=== PATIENT | female | born 1945 | race Caucasian/White ===

== ENCOUNTER → 2017-05-10 | Outpatient (REF) | payer BC, MEDICARE | LOC: M LAB REF 17:31 | PROVIDERS: ATTEND Nurse Practitioner Adult Health | DX: R35.0 Frequency of micturition (principal); R32 Unspecified urinary incontinence ==

== ENCOUNTER 2018-11-19 07:12 | Day surgery (SDC) | payer MEDICARE ==
[~2018-11-19] VITALS: Ht 157.5 cm; Wt 69.9 kg
[~2018-11-19 07:12] MED LIST: ASPI81TA85 PO; ESOM40CA35 PO; HYDR25TAB PO; IRBE300T10 PO; LIDOCAINE 2% INJ 100 MG/5 ML SDV (FOR ANES.) As Ordered ONE; METO1TAB32 PO; PROPOFOL 200 MG/20 ML VIAL As Ordered ONE; ROSU5TAB4 PO; VITA2000 PO; WARF-18 PO
[2018-11-19] MEDS ORDERED: NS 1,000 ML IV ONE (07:45)
--- NOTE | 2018-11-19 09:11 | ROOR ---
Patient Name: Rianna Alejandra Procedure Date: 11/19/2018 8:46 AM Date of : 1945 Age: 73 Room: [facility] Gender: Female Note Status: Finalized Procedure: Upper Endoscopy + Biopsies Indications: Heartburn, Heme positive stool Providers: Yimi Salamanca MD Referring MD: Key WHITE MD Requesting Provider: Medicines: Monitored Anesthesia Care Complications: No immediate complications. Procedure: Pre-Anesthesia Assessment: - The heart rate, respiratory rate, oxygen saturations, blood pressure, adequacy of pulmonary ventilation, and response to care were monitored throughout the procedure. The Endoscope was introduced through the mouth, and advanced to the second part of duodenum. The upper GI endoscopy was accomplished without difficulty. The patient tolerated the procedure well. Findings: The Z-line was variable and was found 35 cm from the incisors. Multiple biopsies were obtained with cold forceps for evaluation to rule out Green's Esophagus randomly at the gastroesophageal junction. A medium-sized hiatal hernia was present. No other significant abnormalities were identified in a careful examination of the stomach. The exam of the duodenum was otherwise normal. Biopsies for histology were taken with a cold forceps in the first portion of the duodenum for evaluation of celiac disease. The exam was otherwise without abnormality. Impression: - Z-line variable, 35 cm from the incisors. - Medium-sized hiatal hernia. - The examination was otherwise normal. - Multiple biopsies were obtained at the gastroesophageal junction. - Biopsies were taken with a cold forceps for evaluation of celiac disease. - The examination was otherwise normal. Recommendation: - Patient has a contact number available for emergencies. The signs and symptoms of potential delayed complications were discussed with the patient. Return to normal activities tomorrow. Written discharge instructions were provided to the patient. - High fiber diet. - Discharge patient to home. - Follow an antireflux regimen. - Continue present medications. - Await pathology results. - Telephone GI clinic for pathology results. - Return to referring physician. - The findings and recommendations were discussed with the patient's family. Yimi Salamanca MD Yimi Salamanca MD 11/19/2018 9:10:47 AM This report has been signed electronically. Number of Addenda: 0 Note Initiated On: 11/19/2018 8:46 AM Estimated Blood Loss: Estimated blood loss: none.
--- NOTE | 2018-11-19 09:32 | ROOR ---
Patient Name: Rianna Alejandra Procedure Date: 11/19/2018 8:47 AM Date of : 1945 Age: 73 Room: [facility] Gender: Female Note Status: Finalized Procedure: Total Colonoscopy to Cecum Indications: Heme positive stool Providers: Yimi Salamanca MD Referring MD: Key WHITE MD Requesting Provider: Medicines: Monitored Anesthesia Care Complications: No immediate complications. Procedure: Pre-Anesthesia Assessment: - The heart rate, respiratory rate, oxygen saturations, blood pressure, adequacy of pulmonary ventilation, and response to care were monitored throughout the procedure. The Colonoscope was introduced through the anus and advanced to the cecum, identified by appendiceal orifice and ileocecal valve. The colonoscopy was performed without difficulty. The patient tolerated the procedure well. The quality of the bowel preparation was excellent. Findings: The perianal and digital rectal examinations were normal. Non-bleeding internal hemorrhoids were found during retroflexion. The hemorrhoids were small and Grade I (internal hemorrhoids that do not prolapse). Scattered small-mouthed diverticula were found in the recto-sigmoid colon, sigmoid colon and descending colon. The exam was otherwise without abnormality on direct and retroflexion views. There was a small lipoma, in the proximal ascending colon. Impression: - Non-bleeding internal hemorrhoids. - Diverticulosis in the recto-sigmoid colon, in the sigmoid colon and in the descending colon. - The examination was otherwise normal on direct and retroflexion views. - Small lipoma in the proximal ascending colon. - No specimens collected. - The exam was otherwise normal to the cecum. Recommendation: - Patient has a contact number available for emergencies. The signs and symptoms of potential delayed complications were discussed with the patient. Return to normal activities tomorrow. Written discharge instructions were provided to the patient. - High fiber diet. - Discharge patient to home. - Continue present medications. - Repeat colonoscopy for symptoms only. - Return to referring physician. - The findings and recommendations were discussed with the patient's family. Yimi Salamanca MD Yimi Salamanca MD 11/19/2018 9:32:26 AM This report has been signed electronically. Number of Addenda: 0 Note Initiated On: 11/19/2018 8:47 AM Estimated Blood Loss: Estimated blood loss: none.
[2018-11-19 10:06] VITALS: BP 118/73
== END 2018-11-19 10:09 | disposition home or self-care (01) ==
LOC: M OPP 07:12
PROVIDERS: ATTEND Internal Medicine Gastroenterology
DX: K64.0 First degree hemorrhoids (principal); D17.5 Benign lipomatous neoplasm of intra-abdominal organs; K57.30 Diverticulosis of large intestine without perforation or abscess without bleeding; R19.5 Other fecal abnormalities; K22.8 Other specified diseases of esophagus; K44.9 Diaphragmatic hernia without obstruction or gangrene; R12 Heartburn; Z79.82 Long term (current) use of aspirin; Z79.899 Other long term (current) drug therapy; Z88.1 Allergy status to other antibiotic agents

== ENCOUNTER → 2021-08-25 | Outpatient (REF) | payer MEDICARE ==
[~2021-08-25] MED LIST changes: -ASPI81TA85 PO; +ASPI81TA86 PO; +HYDR-3490 PO; -HYDR25TAB PO; -IRBE300T10 PO; +IRBE300T7 PO; -LIDOCAINE 2% INJ 100 MG/5 ML SDV (FOR ANES.) As Ordered ONE; -PROPOFOL 200 MG/20 ML VIAL As Ordered ONE; -ROSU5TAB4 PO; +ROSU5TAB5 PO
== END ==
LOC: M LAB REF 16:33
PROVIDERS: ATTEND Nurse Practitioner Adult Health
DX: R31.21 Asymptomatic microscopic hematuria (principal)

== ENCOUNTER → 2021-08-27 | Outpatient (CLI) | payer MEDICARE | LOC: M WHC 14:27 | PROVIDERS: ATTEND Nurse Practitioner Adult Health | DX: Z12.31 Encounter for screening mammogram for malignant neoplasm of breast (principal); Z53.9 Procedure and treatment not carried out, unspecified reason ==

== ENCOUNTER → 2021-08-27 | Outpatient (CLI) | payer MEDICARE ==
--- NOTE | 2021-08-27 15:00 | REP ---
INDICATION: UNSPECIFIED ABDOMINAL PAIN. COMPARISON: 10/16/2014 FINDINGS: The superior mediastinal structures are midline. The cardiac silhouette is unremarkable in size, shape, and position. The diaphragmatic surfaces of the lungs are regular, and the costophrenic angles are clear. The pulmonary kerns are clear. The imaged osseous structures are unchanged. There is a hiatal hernia. IMPRESSION: There is no acute cardiopulmonary disease. <Electronically signed by William Aden > 08/27/21 [id number]
== END ==
LOC: M PLAIMG 14:06
PROVIDERS: ATTEND Nurse Practitioner Adult Health
DX: R06.02 Shortness of breath (principal)

== ENCOUNTER → 2021-10-22 | Outpatient (CLI) | payer MEDICARE | LOC: M WHC 07:38 | PROVIDERS: ATTEND Nurse Practitioner Adult Health | DX: Z12.31 Encounter for screening mammogram for malignant neoplasm of breast (principal); R92.1 Mammographic calcification found on diagnostic imaging of breast ==

== ENCOUNTER → 2022-09-30 | Outpatient (REF) | payer MEDICARE | LOC: M LAB REF 11:53 | PROVIDERS: ATTEND Nurse Practitioner Adult Health | DX: R53.83 Other fatigue (principal); Z11.59 Encounter for screening for other viral diseases ==

== ENCOUNTER → 2022-10-12 | Outpatient (REF) | payer MEDICARE ==
[2022-10-12 17:13] LABS: PERCENT SATURATION 15.5 % (13.2-45.0)
[2022-10-12 17:17] LABS: FERRITIN 9.1 NG/ML (7.3-270.7)
== END ==
LOC: M LAB REF 16:25
PROVIDERS: ATTEND Internal Medicine
DX: D64.9 Anemia, unspecified (principal)

== ENCOUNTER → 2022-10-24 | Outpatient (CLI) | payer MEDICARE | LOC: M WHC 08:37 | PROVIDERS: ATTEND Nurse Practitioner Adult Health | DX: Z12.31 Encounter for screening mammogram for malignant neoplasm of breast (principal) ==

== ENCOUNTER → 2022-11-18 | Outpatient (CLI) | payer MEDICARE | LOC: M SLEEP 20:00 | PROVIDERS: ATTEND Nurse Practitioner Family | DX: G47.33 Obstructive sleep apnea (adult) (pediatric) (principal); R40.0 Somnolence ==

== ENCOUNTER 2023-02-25 15:27 | Emergency (ER) | payer MEDICARE ==
[~2023-02-25] VITALS: Ht 160 cm; Wt 83.8 kg
[2023-02-25] MEDS ORDERED: NS 1,000 ML IV SCH (16:40)
[2023-02-25] MEDS ORDERED: fentaNYL 100 MCG/2 ML INJECTION IV ONE (17:00)
[2023-02-25 17:08] VITALS: TEMP 96.8
[2023-02-25] MEDS ORDERED: CLOP75TA2 PO (17:48)
[2023-02-25] MEDS ORDERED: ELIQ5TAB PO (17:48)
[2023-02-25] MEDS ORDERED: FAMO40TA3 PO (17:48)
[2023-02-25] MEDS ORDERED: METO1TAB7 PO (17:48)
[2023-02-25] MEDS ORDERED: ROSU10TA6 PO (17:48)
[2023-02-25] MEDS ORDERED: HYDR12.55 PO (17:48)
[2023-02-25] MEDS ORDERED: HYDR-3713 PO (17:50)
[2023-02-25 18:27] VITALS: O2SAT 97
[2023-02-25 18:30] VITALS: BP 128/65
[2023-02-25] MEDS ORDERED: NORCO 5/325MG TABLET (HOME DOSE PACK) PO ONE (19:10)
[2023-02-27] MEDS ORDERED: PERC5TAB12 PO (06:35)
== END 2023-02-25 18:40 | disposition home or self-care (01) ==
LOC: M ED 15:27
DX: S42.391A Other fracture of shaft of right humerus, initial encounter for closed fracture (principal); W11.XXXA Fall on and from ladder, initial encounter; Y92.009 Unspecified place in unspecified non-institutional (private) residence as the place of occurrence of the external cause; I51.9 Heart disease, unspecified; I10 Essential (primary) hypertension; Z79.899 Other long term (current) drug therapy; Z88.2 Allergy status to sulfonamides
CPT/HCPCS: 70450; 71101; 72125; 73060; 93005; 99284; J3010

== ENCOUNTER → 2023-03-31 | Outpatient (REF) | payer MEDICARE ==
[~2023-03-31] MED LIST changes: +CLOP75TA2 PO; +ELIQ5TAB PO; +FAMO40TA3 PO; +HYDR-3713 PO; +HYDR12.55 PO; +METO1TAB7 PO; +PERC5TAB12 PO; +ROSU10TA6 PO
== END ==
LOC: M LAB REF 16:17
PROVIDERS: ATTEND Nurse Practitioner Adult Health
DX: I48.21 Permanent atrial fibrillation (principal); Z79.01 Long term (current) use of anticoagulants

== ENCOUNTER → 2023-04-20 | Outpatient (CLI) | payer MEDICARE | LOC: M SOG 10:45 | PROVIDERS: ATTEND Orthopaedic Surgery | DX: S42.301D Unspecified fracture of shaft of humerus, right arm, subsequent encounter for fracture with routine healing (principal) ==

== ENCOUNTER → 2023-05-25 | Outpatient (RCR) | payer MEDICARE, MEDICAID | LOC: M PT 05-02 10:18 | PROVIDERS: ATTEND Orthopaedic Surgery | DX: S42.301D Unspecified fracture of shaft of humerus, right arm, subsequent encounter for fracture with routine healing (principal) ==

== ENCOUNTER → 2023-06-01 | Outpatient (CLI) | payer MEDICARE, MEDICAID | LOC: M SOG 09:11 | PROVIDERS: ATTEND Orthopaedic Surgery | DX: S42.301D Unspecified fracture of shaft of humerus, right arm, subsequent encounter for fracture with routine healing (principal) ==

== ENCOUNTER → 2023-06-27 | Outpatient (REF) | payer MEDICARE, MEDICAID | LOC: M LAB REF 16:22 | PROVIDERS: ATTEND Nurse Practitioner Family | DX: Z79.899 Other long term (current) drug therapy (principal) ==

== ENCOUNTER 2023-07-20 09:43 | Outpatient (RCR) | payer MEDICARE, MEDICAID | END 2023-07-25 | LOC: M PT 09:43 | PROVIDERS: ATTEND Orthopaedic Surgery | DX: S42.301D Unspecified fracture of shaft of humerus, right arm, subsequent encounter for fracture with routine healing (principal) ==

== ENCOUNTER → 2023-08-02 | Outpatient (CLI) | payer MEDICARE, MEDICAID | LOC: M SLEEP 20:00 | PROVIDERS: ATTEND Nurse Practitioner Family | DX: G47.33 Obstructive sleep apnea (adult) (pediatric) (principal) ==

== ENCOUNTER 2023-08-16 09:15 | Outpatient (RCR) | payer MEDICARE, MEDICAID | END 2023-08-24 | LOC: M PT 09:15 | PROVIDERS: ATTEND Orthopaedic Surgery | DX: S42.301D Unspecified fracture of shaft of humerus, right arm, subsequent encounter for fracture with routine healing (principal); W18.30XD Fall on same level, unspecified, subsequent encounter ==

== ENCOUNTER → 2023-09-07 | Outpatient (CLI) | payer MEDICARE, MEDICAID | LOC: M SOG 09:36 | PROVIDERS: ATTEND Physician Assistant | DX: S42.301D Unspecified fracture of shaft of humerus, right arm, subsequent encounter for fracture with routine healing (principal); Y93.9 Activity, unspecified; Y92.9 Unspecified place or not applicable ==

== ENCOUNTER → 2024-01-11 | Outpatient (REF) | payer MEDICARE, MEDICAID ==
[~2024-01-11] MED LIST changes: +IRBE300T25 PO; -IRBE300T7 PO
== END ==
LOC: M LAB REF 16:27
PROVIDERS: ATTEND Nurse Practitioner Family
DX: M81.8 Other osteoporosis without current pathological fracture (principal); Z79.899 Other long term (current) drug therapy

== ENCOUNTER → 2024-01-18 | Outpatient (CLI) | payer MEDICARE, MEDICAID | LOC: M SOG 08:03 | PROVIDERS: ATTEND Physician Assistant | DX: S42.301D Unspecified fracture of shaft of humerus, right arm, subsequent encounter for fracture with routine healing (principal); M25.541 Pain in joints of right hand; M19.041 Primary osteoarthritis, right hand ==

== ENCOUNTER → 2024-06-12 | Outpatient (CLI) | payer MEDICARE, MEDICAID ==
[~2024-06-12] MED LIST changes: -ROSU10TA6 PO; +ROSU10TA61 PO; +ROSU5TAB40 PO; -ROSU5TAB5 PO
== END ==
LOC: M WHC 09:19
PROVIDERS: ATTEND Nurse Practitioner Family
DX: Z12.31 Encounter for screening mammogram for malignant neoplasm of breast (principal); R92.323 Mammographic fibroglandular density, bilateral breasts

== ENCOUNTER → 2024-06-12 | Outpatient (CLI) | payer MEDICARE, MEDICAID | LOC: M WHC 09:20 | PROVIDERS: ATTEND Nurse Practitioner Family | DX: M81.0 Age-related osteoporosis without current pathological fracture (principal); M85.851 Other specified disorders of bone density and structure, right thigh; M85.852 Other specified disorders of bone density and structure, left thigh; Z13.820 Encounter for screening for osteoporosis ==

== ENCOUNTER → 2024-07-19 | Outpatient (REF) | payer MEDICARE, MEDICAID | LOC: M LAB REF 16:49 | PROVIDERS: ATTEND Surgery | DX: C44.722 Squamous cell carcinoma of skin of right lower limb, including hip (principal) ==

== ENCOUNTER → 2025-06-16 | Outpatient (CLI) | payer MEDICARE, MEDICAID ==
[~2025-06-16] MED LIST changes: -ROSU5TAB40 PO; +ROSU5TAB49 PO
== END ==
LOC: M WHC 11:54
PROVIDERS: ATTEND Nurse Practitioner Family
DX: Z12.31 Encounter for screening mammogram for malignant neoplasm of breast (principal); R92.323 Mammographic fibroglandular density, bilateral breasts